=== PATIENT | male | born 1980 | race American Indian/Alaskan Native ===

== ENCOUNTER 2020-05-03 08:32 | Emergency (ER) | payer MEDICARE ==
[2020-05-03 08:47] VITALS: BP 150/92
--- NOTE | 2020-05-03 11:32 | Emergency Department Report ---
ED General Adult HPI - General Chief complaint: Psych Stated complaint: MH EVAL Time Seen by Provider: 05/03/20 11:31 Source: patient Mode of arrival: Ambulatory Limitations: No Limitations - History of Present Illness Initial comments: Patient is a 39-year-old male presents emergency department for bereavement following the loss of a friend 2 days ago without suicidal or homicidal thoughts. Patient additionally notes ongoing monetary dispute with millie, suggesting his Social Security check is being taken. Patient denies any medical complaints at this time. - Related Data Allergies Allergy/AdvReac Type Severity Reaction Status Date / Time No Known Allergies Allergy Unverified 05/03/20 11:04 ED Review of Systems ROS: Stated complaint: MH EVAL Other details as noted in HPI Comment: All other systems reviewed and negative ED Past Medical Hx - Past Medical History Previous Medical History?: Yes Hx Psychiatric Treatment: Yes (bipolar) - Surgical History Past Surgical History?: No - Social History Smoking Status: Never Smoker Substance Use Type: None ED Physical Exam - General Limitations: No Limitations General appearance: alert, in no apparent distress - Head Head exam: Present: atraumatic, normocephalic - Eye Eye exam: Present: normal appearance - ENT ENT exam: Present: mucous membranes moist - Neck Neck exam: Present: normal inspection - Respiratory Respiratory exam: Present: normal lung sounds bilaterally. Absent: respiratory distress - Cardiovascular Cardiovascular Exam: Present: regular rate, normal rhythm. Absent: systolic murmur, diastolic murmur, rubs, gallop - GI/Abdominal GI/Abdominal exam: Present: soft, normal bowel sounds - Rectal Rectal exam: Present: deferred - Extremities Exam Extremities exam: Present: normal inspection - Back Exam Back exam: Present: normal inspection - Neurological Exam Neurological exam: Present: alert, oriented X3 - Psychiatric Psychiatric exam: Present: normal affect, normal mood - Skin Skin exam: Present: warm, dry, intact, normal color. Absent: rash ED Course Vital Signs 05/03/20 05/03/20 08:38 13:11 Temperature 98.9 F Pulse Rate 128 H 112 H Respiratory 24 20 Rate Blood Pressure 150/92 O2 Sat by Pulse 97 97 Oximetry - Reevaluation(s) Reevaluation #1: 05/03/20 12:42 Patient treated with IV normal saline 1 L x 1 for tachycardia. Patient is awake, alert, coherent with decision-making capacity, no evidence of psychosis, denies homicidal or suicidal ideation. Patient ultimately presents frustrated with his living situation, states he would like to move out of his current location. Patient is given information for outpatient psychiatry and local [facility] information in the event he is unwilling to return to his primary residence. 05/03/20 12:43 Reevaluation #2: 05/03/20 13:26 tachycardia resolved with IVNS ED Medical Decision Making - Lab Data Result diagrams: 05/03/20 12:01 Lab Results 05/03/20 Range/Units 12:01 Sodium 134 L (137-145) mmol/L Potassium 4.6 (3.6-5.0) mmol/L Chloride 96.9 L (98-107) mmol/L Carbon Dioxide 30 (22-30) mmol/L Anion Gap 12 mmol/L BUN 15 (9-20) mg/dL Creatinine 0.9 (0.8-1.3) mg/dL Estimated GFR > 60 ml/min BUN/Creatinine Ratio 17 % Glucose 100 (75-100) mg/dL Calcium 9.6 (8.4-10.2) mg/dL Vital Signs 05/03/20 05/03/20 08:38 13:11 Temperature 98.9 F Pulse Rate 128 H 112 H Respiratory 24 20 Rate Blood Pressure 150/92 O2 Sat by Pulse 97 97 Oximetry Critical care attestation.: If time is entered above; I have spent that time in minutes in the direct care of this critically ill patient, excluding procedure time. ED Disposition Clinical Impression: Homelessness Disposition: DC-01 TO HOME OR SELFCARE Is pt being admited?: No Condition: Stable Additional Instructions: [facility] is dedicated to serving the homeless and low-income. We have listed out the shelters and low cost housing services we have in [place], [place] below. This list has homeless shelters, fci houses, affordable housing, etc. The database consists of over 3,000 listings and includes emergency shelters, homeless shelters, day shelters, transitional housing, shared housing, residential drug alcohol rehabilitation programs and permanent affordable housing. [place] [address] [phone] rent based transitional housing. Not free. Call for rates. View Full Listing Details [facility] [place] [address] Housing Authority View Full Listing [place] [address] Non Profit Organization that provides housing assistance for seniors View Full Listing Details [place] [address] Agency that provides [facility] Approved Housing Assistance Programs View Full Listing Details Referrals: PRIMARY CARE, [Primary Care Provider] - 3-5 Days
[2020-05-03] MEDS ORDERED: SODIUM CHLORIDE 0.9% 1000 ML 1,000 ML IV ONE (11:53)
[2020-05-03 12:57] LABS: BUN/Creatinine Ratio 17; Blood Urea Nitrogen 15 mg/dL (9-20); Calcium 9.6 mg/dL (8.4-10.2); Hemolysis Index 6
== END 2020-05-03 14:02 | disposition home or self-care (01) ==
LOC: ED 08:32
DX: F31.9 Bipolar disorder, unspecified (principal); Z59.0 Homelessness
CPT/HCPCS: 36415; 80048; 96360; 99283; J7030